=== PATIENT | male | born 1960 | race Caucasian/White ===

== ENCOUNTER 2020-07-28 12:59 | Emergency (ER) | payer MEDICAID ==
[~2020-07-28] VITALS: Ht 190.5 cm; Wt 177.9 kg
[2020-07-28] MEDS ORDERED: CLOPIDOGREL75 MG PO (13:17)
[2020-07-28] MEDS ORDERED: GABAPENTIN800 M1 PO (13:18)
[2020-07-28] MEDS ORDERED: PRINIVIL20 MG PO (13:18)
[2020-07-28] MEDS ORDERED: IMDUR 30 MG TAB30 M1 PO (13:18)
[2020-07-28] MEDS ORDERED: HYDROCHLOROTHIA25 M2 PO (13:19)
[2020-07-28] MEDS ORDERED: BACLOFEN 10MG T10 MG PO (13:19)
[2020-07-28] MEDS ORDERED: ATENOLOL 25 MG25 M1 PO (13:19)
[2020-07-28] MEDS ORDERED: ATORVASTATIN CA20 MG PO (13:19)
[2020-07-28] MEDS ORDERED: ROXICODONE30 MG PO (13:20)
[2020-07-28] MEDS ORDERED: LANTUS SOL100 UNIT/1 SUBQ (13:22)
[2020-07-28] MEDS ORDERED: NOVOLOG FL100 UNIT/M SUBQ (13:23)
[2020-07-28 13:45] LABS: HEMATOCRIT 46.5 % (42.0-52.0); HEMOGLOBIN 15.7 gm/dL (14.0-18.0); MCH 28.6 pg (26.0-34.0); MCHC 33.9 g/dL (28.0-37.0); MCV 84.4 fL (80.0-100.0); RBC 5.5 mil/uL (4.50-6.00); RDW 14.8 % (10.5-14.5); WBC 10.2 thou/uL (4.0-11.0)
[2020-07-28 13:57] LABS: CALCIUM 8.8 mg/dL (8.5-10.1); CREATININE 1.3 mg/dL (0.7-1.3); POTASSIUM 3.9 mmol/L (3.5-5.1)
[2020-07-28 14:00] LABS: APTT 25.9 Seconds (24.5-32.8); PROTIME 10.6 Seconds (9.3-11.4)
[2020-07-28 14:03] LABS: ALBUMIN 3.1 g/dL (3.4-5.0); DIRECT BILIRUBIN 0.1 mg/dL (<0.1-0.2); TOTAL BILIRUBIN 0.7 mg/dL (0.2-1.0); TOTAL PROTEIN 6.9 g/dL (6.4-8.2)
[2020-07-28] MEDS ORDERED: LEVOFLOXACIN750 MG PO (15:34)
[2020-07-28 16:19] VITALS: BP 168/70
== END 2020-07-28 16:21 | disposition home or self-care (01) ==
LOC: ER 12:59
PROVIDERS: Emergency Medicine
DX: J18.9 Pneumonia, unspecified organism (principal); R04.2 Hemoptysis; I10 Essential (primary) hypertension; E11.9 Type 2 diabetes mellitus without complications; J44.9 Chronic obstructive pulmonary disease, unspecified; I25.2 Old myocardial infarction; Z86.73 Personal history of transient ischemic attack (TIA), and cerebral infarction without residual deficits; Z79.4 Long term (current) use of insulin; Z79.01 Long term (current) use of anticoagulants; Z79.899 Other long term (current) drug therapy; Z88.5 Allergy status to narcotic agent; Z88.8 Allergy status to other drugs, medicaments and biological substances; Z20.828 Contact with and (suspected) exposure to other viral communicable diseases

== ENCOUNTER 2020-11-21 13:09 | Emergency (ER) | payer MEDICAID ==
[~2020-11-21] VITALS: Ht 193 cm; Wt 181.4 kg
[~2020-11-21 13:09] MED LIST: ATENOLOL 25 MG25 M1 PO; ATORVASTATIN CA20 MG PO; BACLOFEN 10MG T10 MG PO; CLOPIDOGREL75 MG PO; GABAPENTIN800 M1 PO; HYDROCHLOROTHIA25 M2 PO; IMDUR 30 MG TAB30 M1 PO; LANTUS SOL100 UNIT/1 SUBQ; LEVOFLOXACIN750 MG PO; NOVOLOG FL100 UNIT/M SUBQ; PRINIVIL20 MG PO; ROXICODONE30 MG PO
[2020-11-21] MEDS ORDERED: NORCO 10-325 T1 EACH PO (15:06)
[2020-11-21 15:22] VITALS: BP 182/93
== END 2020-11-21 15:23 | disposition home or self-care (01) ==
LOC: ER 13:09
DX: G89.29 Other chronic pain (principal); M54.5 Low back pain; I10 Essential (primary) hypertension; J44.9 Chronic obstructive pulmonary disease, unspecified; I25.2 Old myocardial infarction; E11.9 Type 2 diabetes mellitus without complications; Z79.2 Long term (current) use of antibiotics; Z79.01 Long term (current) use of anticoagulants; Z79.899 Other long term (current) drug therapy; Z79.4 Long term (current) use of insulin; Z88.8 Allergy status to other drugs, medicaments and biological substances; Z91.013 Allergy to seafood; Z88.5 Allergy status to narcotic agent

== ENCOUNTER 2021-01-13 12:10 | Emergency (ER) | payer MEDICAID ==
[~2021-01-13] VITALS: Ht 193 cm; Wt 188.2 kg
[~2021-01-13 12:10] MED LIST changes: +NORCO 10-325 T1 EACH PO
[2021-01-13 12:17] VITALS: BP 190/84
[2021-01-13] MEDS ORDERED: BACTRIM DS TAB1 EAC1 PO (13:09)
[2021-01-13] MEDS ORDERED: OXYCODONE HCL10 MG PO (13:09)
== END 2021-01-13 15:06 | disposition home or self-care (01) ==
LOC: ER 12:10
DX: S81.832A Puncture wound without foreign body, left lower leg, initial encounter (principal); I89.0 Lymphedema, not elsewhere classified; I10 Essential (primary) hypertension; J44.9 Chronic obstructive pulmonary disease, unspecified; I25.2 Old myocardial infarction; E11.9 Type 2 diabetes mellitus without complications; F17.210 Nicotine dependence, cigarettes, uncomplicated; Z86.73 Personal history of transient ischemic attack (TIA), and cerebral infarction without residual deficits; Z90.89 Acquired absence of other organs; Z79.82 Long term (current) use of aspirin; Z79.4 Long term (current) use of insulin; Z88.8 Allergy status to other drugs, medicaments and biological substances; Z91.013 Allergy to seafood; Z88.5 Allergy status to narcotic agent; Z91.018 Allergy to other foods; W22.8XXA Striking against or struck by other objects, initial encounter; Y93.89 Activity, other specified; Y92.89 Other specified places as the place of occurrence of the external cause; Y99.8 Other external cause status

== ENCOUNTER 2021-02-21 14:35 | Emergency (ER) | payer MEDICAID ==
[~2021-02-21] VITALS: Ht 182.9 cm; Wt 181.4 kg
[~2021-02-21 14:35] MED LIST changes: +BACTRIM DS TAB1 EAC1 PO; +OXYCODONE HCL10 MG PO
[2021-02-21 16:37] LABS: HEMATOCRIT 47.1 % (42.0-52.0); HEMOGLOBIN 15.6 gm/dL (14.0-18.0); MCH 28.9 pg (26.0-34.0); MCHC 33.2 g/dL (28.0-37.0); MCV 87.2 fL (80.0-100.0); RBC 5.4 mil/uL (4.50-6.00); RDW 15.3 % (10.5-14.5); WBC 10.5 thou/uL (4.0-11.0)
[2021-02-21 16:50] LABS: CALCIUM 8.3 mg/dL (8.5-10.1); POTASSIUM 4.2 mmol/L (3.5-5.1)
[2021-02-21 17:11] VITALS: BP 165/89
--- NOTE | 2021-02-22 08:23 | EKG ---
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: : 1960 Requested By: Freddie Mendoza Order Number: [id number] MD: Akil Root Measurements Intervals [place] Rate: 62 P: 68 OR: 190 QRS: -35 QRSD: 115 T: 61 QT: 447 QTc: 454 Interpretive Statements Sinus rhythm Nonspecific intraventricular conduction delay Low voltage, precordial leads No previous ECG available for comparison Electronically Signed On 02-22-2021 7:02:50 CDT by Akil Root [email or web address] <ELECTRONICALLY SIGNED> By: Akil Root MD, [facility] 02/22/21 0702 1621 1621 Akil Root MD, FACC /EPI
== END 2021-02-21 17:12 | disposition home or self-care (01) ==
LOC: ER 14:35
PROVIDERS: Emergency Medicine
DX: M54.5 Low back pain (principal); G89.29 Other chronic pain; I10 Essential (primary) hypertension; J44.9 Chronic obstructive pulmonary disease, unspecified; E11.9 Type 2 diabetes mellitus without complications; F17.210 Nicotine dependence, cigarettes, uncomplicated; Z86.73 Personal history of transient ischemic attack (TIA), and cerebral infarction without residual deficits; Z88.5 Allergy status to narcotic agent; Z91.018 Allergy to other foods

== ENCOUNTER 2021-05-05 17:07 | Inpatient (IN) | payer OTHER ==
[~2021-05-05] VITALS: Ht 193 cm; Wt 187.3 kg
[2021-05-05 17:18] VITALS: BP 158/84
[2021-05-05 17:49] LABS: ABSOLUTE NEUTROPHILS 5.2 thou/uL (1.4-8.2); BASOPHILS 0.7 % (0.0-2.0); EOSINOPHILS 1.8 % (0.0-3.0); HEMATOCRIT 48.7 % (42.0-52.0); HEMOGLOBIN 16.4 gm/dL (14.0-18.0); MCH 29.3 pg (26.0-34.0); MCHC 33.7 g/dL (28.0-37.0); MCV 86.8 fL (80.0-100.0); MONOCYTES 7.1 % (1.0-8.0); PLATELET COUNT 181 thou/uL (150-400); POLYS 60.4 % (36.0-66.0); RBC 5.61 mil/uL (4.50-6.00); RDW 14.3 % (10.5-14.5); WBC 8.6 thou/uL (4.0-11.0)
[2021-05-05 17:56] LABS: CALCIUM 8.6 mg/dL (8.5-10.1); CREATININE 1.1 mg/dL (0.7-1.3); POTASSIUM 4.2 mmol/L (3.5-5.1)
[2021-05-05 18:02] LABS: ALBUMIN 2.9 g/dL (3.4-5.0); TOTAL BILIRUBIN 0.7 mg/dL (0.2-1.0); TOTAL PROTEIN 7.1 g/dL (6.4-8.2)
--- NOTE | 2021-05-05 20:15 | NUR ---
DR MONTEJO CONTACTED AND TALKED WITH PROVIDER
[2021-05-05 20:36] LABS: URINE BILIRUBIN NEGATIVE (Negative); URINE BLOOD NEGATIVE (Negative); URINE CLARITY CLEAR; URINE COLOR YELLOW; URINE GLUCOSE-RANDOM* 1+ (Negative); URINE KETONES NEGATIVE (Negative); URINE LEUKOCYTES-REFLEX NEGATIVE (Negative); URINE NITRITE-REFLEX NEGATIVE (Negative); URINE PROTEIN (DIPSTICK) NEGATIVE (Negative); URINE SPECIFIC GRAVITY >= 1.030 (1.005-1.035); URINE UROBILINOGEN 0.2 E.U./dl (0.2-1.0)
[2021-05-05 20:49] VITALS: BP 145/82
[2021-05-05 20:50] VITALS: BP 158/84
[2021-05-05 22:02] VITALS: BP 183/79
--- NOTE | 2021-05-06 00:38 | NUR ---
ADMISSION ASSESSMENT COMPLETED. PT HERE WITH LLE CELLULITIS. IV ABTS STARTED.PT C/O LEG PAIN AND LOWER CHRONIC BACK PAIN.HE IS ALERT AND ORIENTED X 4. OLIVARES TO D/D WITH GOOD U/O.LLE RE-WRAPPED, NURSE UNABLE TO TAKE PICTURE BECAUSE CAMERA NOT WORKING AND PATIENT DID NOT WANT KALEB BOTHERED LATER. ELEVATED BP, PRN HYDRALAZINE GIVEN. PT USES CPAP@ NOC WITH 2L/NC- WITH OCCASIONAL NON PRODUCTIVE COUGH.LLE ELEVATED ON PILLOW.CALL LIGHT WITHIN REACH. WILL CONTINUE WITH POC TILL EOS.
--- NOTE | 2021-05-06 03:03 | NUR ---
NEW PT ADMITTED TO ROOM 440. REPORT RECIEVED FROM GALDINO CRUZ IN ED. ASSESSMENT COMPLTE. PT ORIENTED TO THIS UNIT AND ROOM. EDUCATION AND HISTORY COLLECTED FROM PT. CONSENTS SIGNED. MEDS GIVEN PER OCT. NOTIFIED CARROL CAREY NP OF NEED FOR PO PAIN MEDICINE AND PRN BP MEDINCINE. ATTEMPTED TO COLLECT WC PICTURES BUT CAMERA WAS AND PT WAS STARTING TO GET SLEEPY AND MILDLY AGITATED. LLE WC COMPLETE. CPAP ON. OLIVARES CARE DONE. ALL NEEDS MET. CALL LIGHT IN REACH.
[2021-05-06 03:54] VITALS: BP 144/79
[2021-05-06 05:32] LABS: HEMOGLOBIN 16.1 gm/dL (14.0-18.0); MCH 29.7 pg (26.0-34.0); MCHC 34.2 g/dL (28.0-37.0); MCV 86.9 fL (80.0-100.0); RBC 5.41 mil/uL (4.50-6.00); RDW 14.2 % (10.5-14.5); WBC 8.8 thou/uL (4.0-11.0)
[2021-05-06 05:43] LABS: CALCIUM 8.4 mg/dL (8.5-10.1); CREATININE 0.9 mg/dL (0.7-1.3); POTASSIUM 3.8 mmol/L (3.5-5.1)
[2021-05-06 08:00] VITALS: BP 147/85
[2021-05-06 15:30] VITALS: BP 146/61
[2021-05-06 20:22] VITALS: BP 172/79
--- NOTE | 2021-05-07 05:06 | NUR ---
ASSUMED PT CARE AT 1930. PT IS ALERT AND ORIENTED X4. PT USES CPAP AT NOC. DRSG CHANGE WAS COMPLETED. PAIN WAS MANAGED BY PRN PAIN MEDS. PT HAS MARSHALL HAS IN PLACE WHICH IS PATENT. PT TOLERATING ABX WELL. PT IS PLEASANT AND COOPERATIVE. MEDS WERE GIVEN PER EMAR ORDERS. FALL PRECAUTIONS IN PLACE. WILL CONTINUE TO MONITOR.
[2021-05-07 05:58] VITALS: BP 150/71
[2021-05-07 07:52] VITALS: BP 162/89
[2021-05-07 08:35] VITALS: BP 162/89
[2021-05-07 09:04] LABS: HEMATOCRIT 48.7 % (42.0-52.0); HEMOGLOBIN 15.9 gm/dL (14.0-18.0); MCH 29.1 pg (26.0-34.0); MCHC 32.6 g/dL (28.0-37.0); MCV 89.1 fL (80.0-100.0); RBC 5.46 mil/uL (4.50-6.00); RDW 14.6 % (10.5-14.5); WBC 9.2 thou/uL (4.0-11.0)
[2021-05-07 09:07] LABS: CALCIUM 8.3 mg/dL (8.5-10.1); MAGNESIUM 2.2 mg/dL (1.8-2.4); POTASSIUM 4.3 mmol/L (3.5-5.1)
--- NOTE | 2021-05-07 11:45 | NUR ---
RECEIVED P.T. ORDERS AND CHART REVIEWED. O.T. HAD JUST EVAL'D Pt AND IS D/C'ING HIM. Pt EVEN WAS ABLE TO TAKE A SHOWER ON HIS OWN. SPOKE TO Pt AND HE PLEASANTLY REFUSED P.T. HE STATES THAT HE GETS AROUND JUST FINE AND ONLY HAS 1 LIZBET WITH HAVING NO ISSUES IN DOING. SO, WILL P.T. D/C AT THIS TIME.
[2021-05-07 15:12] VITALS: BP 122/65
--- NOTE | 2021-05-07 15:31 | NUR ---
ASSUMED CARE OF PT THIS MORNING. PT A&OX4. PT UP TO BATHROOM WITH STEADY GAIT NOTED. PT REFUSES TO USE A WALKER OR A CANE. PT MARSHALL IS PATENT. MEDS GIVEN PER ORDERS. IV PAIN MEDS GIVEN WITH STATED NOTED RELIEF. DRESSING CHANGE DONE. WILL CONTINUE TO MONITOR.
[2021-05-07 19:20] VITALS: BP 132/69
[2021-05-08 03:13] LABS: HEMATOCRIT 45.9 % (42.0-52.0); HEMOGLOBIN 15.5 gm/dL (14.0-18.0); MCH 29.6 pg (26.0-34.0); MCHC 33.8 g/dL (28.0-37.0); MCV 87.6 fL (80.0-100.0); RBC 5.24 mil/uL (4.50-6.00); RDW 14.2 % (10.5-14.5); WBC 9.4 thou/uL (4.0-11.0)
--- NOTE | 2021-05-08 03:32 | NUR ---
PATIENT RESTING IN HIS ROOM AAOX4. PATIENT HAS WEEPING EDEMA 2-3+ IN BLE. PATIENT STATES THAT HIS PAIN IS 10/10. PT STATES THAT HE NEEDS HELP TO HAVE A BM. AMBULATES WITH MINIMAL ASSISTANCE TO RESTROOM. PT COOPERATES WITH MEDICATION AND TREATMENT. THIS AM 0230 PATIENT STATES THAT HE WANTS TO SEE WHERE HIS BLOOD SUGAR IS SO HE CAN EAT SOME NUTTY BARS AND HAVE SOME COFFEE. EDUCATED PATIENT THAT HE IS ORDERED A DIABETIC DIET AND THAT HE WOULD NOT HAVE INSULIN COVERAGE AT THIS TIME. PATIENT STATES THAT HE IS "ON A HOLLIE DIET. STATES THAT HE HAS THIS ROUTINE THAT HE DOES AT HOME. DRINK A CUP OF COFFEE, EAT A NUTTY BAR, THEN DRINK ANOTHER CUP OF COFFEE. I HAVE MADE IT 61 YEARS AND STILL LOOK GOOD." PATIENT WAS ADMINISTERED MEDICATION FO RPAIN AND WAS GIVEN SMALL CUP OF COFFEE WITH NO SUGAR.
[2021-05-08 03:50] LABS: CALCIUM 8.3 mg/dL (8.5-10.1); CREATININE 1.2 mg/dL (0.7-1.3); MAGNESIUM 2.1 mg/dL (1.8-2.4); POTASSIUM 3.9 mmol/L (3.5-5.1)
[2021-05-08 03:53] VITALS: BP 140/70
--- NOTE | 2021-05-08 09:02 | HC ---
[facility] [place] [address] CONSULTATION Name: HOLLIE CONTRERAS Room #: 440-P [facility] IN M.R.#: [id number] Admission: 05/05/21 Attend Phys: Velasquez Gayle MD Discharge: Date of : 58 Report #: [id number] THIS REPORT FOR: cc: Juan Antonio Iyer MD, David MD [place],Sergio Gonzalez MD ~ DATE OF SERVICE: 05/06/2021 WOUND CARE CONSULTATION NOTE REASON FOR CONSULTATION: Morbid obesity with diabetes mellitus and peripheral neuropathy, with bilateral lower extremity lymphedema, with venous stasis with ulceration and inflammation of left leg, with cellulitis of left leg. HISTORY OF PRESENT ILLNESS: The patient is a 60-year-old gentleman admitted to the Emergency Department at [facility] with morbid obesity, diabetes mellitus type 2 with diabetic neuropathy, lymphedema and venous stasis with inflammation and ulceration of the left leg, with cellulitis of the left leg with extreme pain. He is currently on IV vancomycin. Wound Care was consulted. ALLERGIES: MORPHINE AND CHANTIX. MEDICATIONS: See chart. PAST MEDICAL HISTORY: Morbid obesity, hypertension, COPD, history of cerebrovascular accident, diabetes mellitus type 2, immobility, chronic lymphedema, chronic venous stasis, tobaccoism. PHYSICAL EXAMINATION: GENERAL: Shows a well-appearing, alert, bearded 60-year-old gentleman who is alert, pleasant, and conversant. HEENT: Mucous membranes moist. NECK: Supple. LUNGS: Respirations unlabored. ABDOMEN: Soft and obese. EXTREMITIES: Show bilateral lymphedema of the lower extremities. There is some chronic redness and inflammation of the right leg without tenderness. Examination of the left leg shows more redness of the left leg with cellulitis and extreme tenderness. There is evidence of chronic venous stasis with inflammation and ulceration. There are small ulcerations, scattered, less than 1 cm in the posterior aspect of the left calf distally, which are very tender to touch. IMPRESSION: 1. Morbid obesity. [facility] [address] [facility] [place] [address] CONSULTATION Name: HOLLIE CONTRERAS Room #: 440-P ADM IN .R.#: [id number] Admission: 05/05/21 Attend Phys: Velasquez Gayle MD Discharge: Date of : 58 Report #: [id number] 2. Diabetes mellitus type 2 with skin ulcers. 3. Cellulitis of the left leg in setting of lymphedema and chronic venous stasis with inflammation and ulceration. 4. Status post cerebrovascular accident. 5. Immobility. 6. Tobaccoism. 7. History of coronary artery disease. WOUND CARE PLAN: IV vancomycin. Elevation of the left leg. Xeroform dressing to left leg with Kerlix wrap daily. Primary therapy will be IV antibiotics. Wound Care team will follow. <ELECTRONICALLY SIGNED> By: Sergio Rico MD 05/08/21 0902 0505 0533 Sergio Rico MD /melissa
[2021-05-08 14:32] VITALS: BP 119/82
--- NOTE | 2021-05-08 14:37 | NUR ---
Case opened to follow for dc planing. Instrumental Teacher visited with the pt at bedside. He is a&ox4 and indicates he lives at home with his and adult son/adult dtr and 2 grandchildren. He and his recently moved from [place], [place] to [place] and have been trying to apply for [place] medicaid. He is disabled and was on [place] medicaid for several years but it was canceled due to his change in residence. He was not able to get any of his scripts fill in the past 30 days or see his pcp. He has been followed by Dr. Juan Antonio Iyer for several years. His and adult son are also disabled and they were on medicaid as well. He is up ad fuentes in the room but notes his lt foot is extremely swollen. He reports coming to the hospital as it was getting dark in color and more painful. He is a diabetic and has a small amount of insulin but no needs. [facility] along with [facility] referral and a one time script assistance. [facility] to see him this afternoon and they are aware they will need to call pt's during visit as she is the one who manages their ins/paperwork. Cm role introduced. Possible dc home tomorrow.
--- NOTE | 2021-05-08 16:24 | NUR ---
ASSUMED CARE AT SHIFT CHANGE. PT A/O X 4, PLESANT AND CALM THROUGHOUT THE DAY. C/O PAIN TO LOW BACK AND LLE AT 10/10 ALL DAY. MINIMAL RELIEF WITH PRN PAIN MEDS. UP TO CHAIR ONCE TODAY FOR LUNCH. WOUND DRESSING CHANGED. NEW ORDERS IN CHART PER WOUND CARE. PT LEGS ELEVATED WITH PILLOWS TODAY FOR EDEMA. DIURESING WELL. PLAN TO DC HOME WITH HH TOMORROW. WILL CONT TO MONITOR AND FOLLOW POC.
--- NOTE | 2021-05-09 00:55 | NUR ---
DRESSING TO LLE C/D/I. PT C/O PAIN TO LOWER BACK AND LEGS, ASKING FOR FENTANYL IVP WELL NORCO, PAIN MEDS EDUCATION PROVIDED, AND THE TWO MEDS WILL BE ALTERNATED NEEDED-PT AGREEABLE. PT REFUSED SHORT ACTING INSULIN SAYING HE KNOWS HIS BODY AND THAT HE WILL BOTTOM OUT-EDUCATION PROVIDED IN LIGHT OF HIS HIGH BLOOD SUGAR HISTORY-NO SUCCESS-PT ALSO HAS SNACKS BY THE BEDSIDE WHICH HE EATS AT NOC WHEN SUGARS GO LOW HE SAYS.NO SIGNS OF DISTRESS NOTED.CALL LIGHT WITHIN REACH.
[2021-05-09 02:00] VITALS: BP 138/62
[2021-05-09 03:25] LABS: HEMATOCRIT 45.1 % (42.0-52.0); HEMOGLOBIN 15.3 gm/dL (14.0-18.0); MCH 29.6 pg (26.0-34.0); MCHC 33.8 g/dL (28.0-37.0); MCV 87.4 fL (80.0-100.0); RBC 5.17 mil/uL (4.50-6.00); RDW 14.2 % (10.5-14.5); WBC 7.8 thou/uL (4.0-11.0)
[2021-05-09 03:34] LABS: CALCIUM 8.3 mg/dL (8.5-10.1); MAGNESIUM 2.1 mg/dL (1.8-2.4); POTASSIUM 3.7 mmol/L (3.5-5.1)
[2021-05-09 07:41] VITALS: BP 130/70
[2021-05-09 12:05] VITALS: BP 123/69
--- NOTE | 2021-05-09 12:12 | NUR ---
A/O X 4. Room air. One assist with transfers and ADLs. Right forearm IV saline locked. 3 + bilateral leg edema. student development specialist completed wound care on left lower leg wound- silver, xerofoam, kerlix, jose wrap. Wound culture of left lower leg postve for MRSA. Patient placed on contact isolation. Nurse spoke with Dr. Samuels about patient not wanting a carb control diet, he said that regular diet is fine. [place] @ [id number]. Tolerating IV ABTs well ZOYSN AND Vanco. Lidocaine patch placed on back. artist manager Betty spoke with patient about [facility].
[2021-05-09] MEDS ORDERED: LEVOFLOXACIN750 MG PO (12:41)
[2021-05-09] MEDS ORDERED: DOXYCYCLINE 10100 M2 PO (12:41)
[2021-05-09] MEDS ORDERED: CLOPIDOGREL75 MG PO (12:42)
[2021-05-09] MEDS ORDERED: IMDUR 30 MG TAB30 M1 PO (12:42)
[2021-05-09] MEDS ORDERED: LASIX 40 MG TAB40 MG PO (12:42)
[2021-05-09] MEDS ORDERED: ATORVASTATIN CA20 MG PO (12:42)
[2021-05-09] MEDS ORDERED: GABAPENTIN800 M1 PO (12:43)
[2021-05-09] MEDS ORDERED: LANTUS SOL100 UNIT/1 SUBQ (12:43)
[2021-05-09] MEDS ORDERED: PRINIVIL20 MG PO (12:43)
[2021-05-09] MEDS ORDERED: ATENOLOL 25 MG25 M1 PO (12:43)
[2021-05-09] MEDS ORDERED: NOVOLOG FL100 UNIT/M SUBQ (12:43)
[2021-05-09] MEDS ORDERED: SSD CREAM 1% 5050 GM TOP (12:44)
--- NOTE | 2021-05-09 16:44 | NUR ---
Pt left before [facility] CM vouched $1219.00 for 30 days supply to give him time to connect with a [facility] clinic ([facility]) and to get his [place] medicaid in place. [facility] is following up with him and his . Power Press Operator spoke with both of them via phone and they will send their dtr back up this evening or early tomorrow am to get the medication. Encouragement given for med compliance and f/u care.
== END 2021-05-09 14:02 | disposition home or self-care (01) | DRG 603 ==
LOC: ER 17:07 → EROBS 18:31 → 4S 21:10
PROVIDERS: Nurse Practitioner; ADMIT Internal Medicine; ATTEND Internal Medicine
PROC: 5A09357 Assistance with Respiratory Ventilation, Less than 24 Consecutive Hours, Continuous Positive Airway Pressure (ICD-10-PCS; principal; 2021-05-05)
PROC: 5A09457 Assistance with Respiratory Ventilation, 24-96 Consecutive Hours, Continuous Positive Airway Pressure (ICD-10-PCS; 2021-05-06)
DX: L03.116 Cellulitis of left lower limb (principal); Z68.43 Body mass index [BMI] 50.0-59.9, adult; L97.229 Non-pressure chronic ulcer of left calf with unspecified severity; Z20.822 Contact with and (suspected) exposure to COVID-19; I10 Essential (primary) hypertension; J44.9 Chronic obstructive pulmonary disease, unspecified; G89.29 Other chronic pain; G47.33 Obstructive sleep apnea (adult) (pediatric); M54.9 Dorsalgia, unspecified; F17.210 Nicotine dependence, cigarettes, uncomplicated; E66.01 Morbid (severe) obesity due to excess calories; E11.40 Type 2 diabetes mellitus with diabetic neuropathy, unspecified; I87.8 Other specified disorders of veins; I89.0 Lymphedema, not elsewhere classified; E11.622 Type 2 diabetes mellitus with other skin ulcer; I25.10 Atherosclerotic heart disease of native coronary artery without angina pectoris; I25.2 Old myocardial infarction; Z86.73 Personal history of transient ischemic attack (TIA), and cerebral infarction without residual deficits; Z88.8 Allergy status to other drugs, medicaments and biological substances; Z91.018 Allergy to other foods; Z91.013 Allergy to seafood; Z79.4 Long term (current) use of insulin
CPT/HCPCS: 10100; 10102

== ENCOUNTER 2021-05-25 10:36 | Inpatient (IN) | payer OTHER ==
[~2021-05-25] VITALS: Ht 193 cm; Wt 186.9 kg
[~2021-05-25 10:36] MED LIST changes: +DOXYCYCLINE 10100 M2 PO; +LASIX 40 MG TAB40 MG PO; +SSD CREAM 1% 5050 GM TOP
[2021-05-25 10:54] VITALS: BP 122/73
[2021-05-25 11:38] LABS: HEMATOCRIT 50.1 % (42.0-52.0); MCH 29.2 pg (26.0-34.0); MCHC 33.9 g/dL (28.0-37.0); MCV 85.9 fL (80.0-100.0); RBC 5.83 mil/uL (4.50-6.00); RDW 14.7 % (10.5-14.5); WBC 10.8 thou/uL (4.0-11.0)
[2021-05-25 11:42] LABS: CALCIUM 8.7 mg/dL (8.5-10.1); POTASSIUM 4.5 mmol/L (3.5-5.1)
[2021-05-25 11:48] LABS: ALBUMIN 3.3 g/dL (3.4-5.0); TOTAL BILIRUBIN 0.6 mg/dL (0.2-1.0); TOTAL PROTEIN 7.7 g/dL (6.4-8.2)
[2021-05-25 16:59] VITALS: BP 90/57
[2021-05-25 17:02] VITALS: BP 115/64
[2021-05-25 18:45] VITALS: BP 141/70
--- NOTE | 2021-05-26 04:45 | NUR ---
ASSUMED CARE OF PT AT SHIFT CHANGE. PT IS AOX4 AND LETS NEEDS BE KNOWN. FALL PRECAUTION IN PLACE. PT WAS ORIENTED TO THE UNIT AND HIS ROOM. FALL PRECAUTION IN PLACE. REPORTED SOME BACK PAIN AND BLE PAIN; PRN PAIN MEDS PROVIDED WITH LITTLE SUCCESS. PT USED CPAP WHILE SLEEPING. PT WAS ABLE TO ANSWER ALL ADMISSION RELATED QUESTIONS. ASSESSMENT CHARTED. PT SLEPT PART OF THE SHIFT. VSS AND NO S/S OF ACUTE DISTRESS. WILL CONTINE TO MONITOR FOR CHANGES.
--- NOTE | 2021-05-26 05:16 | HC ---
[facility] [place] [address] [place] [address] CONSULTATION Name: HOLLIE CONTRERAS Room #: 459-P ADM IN M.R.#: [id number] Admission: 05/25/21 Attend Phys: Lavon Samuels MD Discharge: Date of : 58 Report #: [id number] THIS REPORT FOR: cc: FAM - No family physician/PCP FAM - No family physician/PCP Ramone Myers MD ~ DATE OF SERVICE: 05/25/2021 INFECTIOUS DISEASE CONSULTATION ATTENDING PHYSICIAN: Dr. Samuels. REASON FOR EVALUATION: Left lower extremity inflammatory eruption, likely multifactorial including skin and soft tissue infection with cellulitis, this is a recurrent situation. HISTORY OF PRESENT ILLNESS: The patient examined. This is a 60-year-old gentleman who has fairly extensive medical history, has diabetes mellitus, has been complicated by known vasculopathy, acute myocardial infarction, underlying COPD, venous stasis insufficiency with dermatitis and recurrent ulcers, most recently the posterior aspect of the left leg. It was notable, he was hospitalized earlier this month with same. Cultures were collected at that point had polymicrobial growth including Pseudomonas aeruginosa, Proteus vulgaris and MRSA. He was discharged on antibiotics, seems to have improving of course until he was last couple days, he discontinued the antibiotics due to completion of the combination of Levaquin and doxycycline roughly 6 days ago. He does note significant amount of pain. It is not clear whether he has had significant fevers or chills. Appetite has been satisfactory. Has underlying COPD. He is a chronic smoker. No GI-related complaints. ALLERGIES: LISTED TO SEAFOOD ___, MORPHINE, CHANTIX. CURRENT MEDICATIONS: Cyanocobalamin, clopidogrel, furosemide, methocarbamol, insulin, atorvastatin, gabapentin, ceftriaxone, levofloxacin, vancomycin. PAST MEDICAL HISTORY: As described above, hypertension, COPD, diabetes complicated by vasculopathy, has previous acute myocardial infarctions, strokes, AAA, chronic back pain, obstructive sleep apnea, chronic venous stasis insufficiency with dermatitis and chronic ulcers. SOCIAL HISTORY: Smokes 1 to 1-1/2 packs of cigarettes. He states since age 8. Past use of ethanol. Does use illicit drugs, specifically marijuana. FAMILY HISTORY: Noncontributory. REVIEW OF SYSTEMS: Otherwise, unremarkable. [address] [address] CONSULTATION Name: HOLLIE CONTRERAS Room #: 459-P [facility] IN ..#: [id number] Admission: 05/25/21 Attend Phys: Lavon Samuels MD Discharge: Date of : 58 Report #: [id number] PHYSICAL EXAMINATION: GENERAL: He is obese, appears chronically ill, generally lucid. He is in moderate distress, intermittent coughing. VITAL SIGNS: Temperature 98.3, pulse 59, respirations 18, blood pressure 90/57. SKIN: Warm, dry, no rashes. HEENT: Normocephalic. Extraocular muscles intact. NECK: Supple. LUNGS: Scattered coarse breath sounds, has some wheezes. HEART: Distant, may have a soft systolic murmur. I do not appreciate any significant ectopy. ABDOMEN: Morbid obesity, firm, nontender. EXTREMITIES: Bilateral lower extremities have changes consistent with chronic venous stasis insufficiency and dermopathy, has an eschar over the posterior aspect of the left leg, is quite tender to palpation at this point, there is no particular drainage. GENITOURINARY AND RECTAL: Deferred. LABORATORY DATA: Coronavirus testing was negative. Lactic acid 1.5. CBC: White count of 10.8, H and H 17.0 and 50.1, platelets of 207. Sodium 135, potassium 4.5, chloride 104, bicarbonate 24, anion gap of 7, BUN and creatinine 12 and 1.0, glucose of 163. Albumin of 3.3, total protein of 7.7, estimated GFR 76. Chest x-ray showed no acute process. ASSESSMENT AND PLAN: Bilateral lower extremity inflammatory eruptions, left greater than right, associated ulcer, posterior aspect, suspected component of skin and soft tissue infection, although I think it is multifactorial including venous stasis insufficiency, previous venous Doppler done 3 weeks ago showed no evidence of DVT. We will check arterial Dopplers to exclude that may benefit from aggressive compression and if there is any significant arterial occlusive disease and may be addressed as well. At this point, he is quite tenuous. We will continue to monitor expectantly. Add incentive spirometry. He should have a good coverage based on previous cultures and the expectation is probably gram-positive setting. <ELECTRONICALLY SIGNED> By: Ramone Myers MD 05/26/21 0516 1500 0058 Ramone Myers MD /nt
[2021-05-26 05:45] VITALS: BP 136/57
[2021-05-26 06:32] LABS: BASOPHILS 0.8 % (0.0-2.0); HEMATOCRIT 46.8 % (42.0-52.0); HEMOGLOBIN 15.5 gm/dL (14.0-18.0); LYMPHOCYTES 24.9 % (24.0-44.0); MCHC 33.2 g/dL (28.0-37.0); MCV 87.5 fL (80.0-100.0); MONOCYTES 7.5 % (1.0-8.0); PLATELET COUNT 160 thou/uL (150-400); POLYS 63.8 % (36.0-66.0); RBC 5.34 mil/uL (4.50-6.00); RDW 14.7 % (10.5-14.5); WBC 7.9 thou/uL (4.0-11.0)
[2021-05-26 06:48] LABS: CALCIUM 8.6 mg/dL (8.5-10.1); MAGNESIUM 2.3 mg/dL (1.8-2.4)
[2021-05-26 07:45] VITALS: BP 165/73
--- NOTE | 2021-05-26 14:17 | NUR ---
PT DOES NOT WANT OR FEEL HE NEEDS OT. SEE OT VARIANCE
--- NOTE | 2021-05-26 14:53 | NUR ---
PT DECLINING P.T. EVALUATION AT THIS TIME. RN CONFIRMS PT'S REPORT THAT PT IS AMBULATING AD JENNY IN ROOM WHEN DISCONNECTED FROM I.V. PT ABLE TO DEMONSTRATE BILAT LE ROM AND TX AT SBA LEVEL. DECLINED NEED FOR A.D. DUE TO INCREASED LE PAIN OR EDEMA. REQUEST NEW P.T. CONSULT IF PT DEMONSTRATES A DECLINE IN FUNCTIONAL MOBILITY LEVEL. PT PRIMARILY AMB HOUSEHOLD DISTANCES AT BASELINE AND CONTINUES TO ACTIVELY SMOKE INSIDE HIS HOME.
[2021-05-26 16:19] VITALS: BP 128/87
--- NOTE | 2021-05-26 17:25 | NUR ---
TODAY THIS PT HAS BEEN NSR ON THE HEART MONITOR WITH SOME STATED PAIN IN WHICH HE RECIEVED MEDICATIONS FOR. HE HAS HAD A SHOWER TODAY AND CULTURE WAS SENT ON HIS LEG WOUND HE HAS OTHERWISE BEEN IN HIS ROOM AWAITING FOR THE NEXT PLAN.
[2021-05-26 20:20] VITALS: BP 147/63
[2021-05-27 05:44] LABS: HEMATOCRIT 45.2 % (42.0-52.0); MCHC 33.1 g/dL (28.0-37.0); MCV 87.7 fL (80.0-100.0); RBC 5.16 mil/uL (4.50-6.00); RDW 14.6 % (10.5-14.5); WBC 7.3 thou/uL (4.0-11.0)
--- NOTE | 2021-05-27 06:34 | NUR ---
ASSUMED CARE AT 1900, PT COMPLIANT WITH CPAP AT NIGHT, VOICED LOWER BACK PAIN MEDICATION ADMINISTERED PER REQUEST, SLEPT FOR 6 HOURS, WILL CONTINUE TO MONITOR.
[2021-05-27 06:42] LABS: CALCIUM 8.4 mg/dL (8.5-10.1); CREATININE 0.9 mg/dL (0.7-1.3); POTASSIUM 4.2 mmol/L (3.5-5.1)
[2021-05-27 07:39] VITALS: BP 139/69
--- NOTE | 2021-05-27 09:32 | HC ---
[facility] [place] [address] CONSULTATION Name: HOLLIE CONTRERAS Room #: 459-P ADM IN M.R.#: [id number] Admission: 05/25/21 Attend Phys: Lavon Samuels MD Discharge: Date of : 58 Report #: [id number] THIS REPORT FOR: cc: FAM - No family physician/PCP FAM - No family physician/PCP Sergio Rico MD ~ DATE OF SERVICE: 05/26/2021 WOUND CARE CONSULTATION REASON FOR CONSULTATION: Lymphedema, left lower extremity with cellulitis and stasis ulceration. HISTORY OF PRESENT ILLNESS: The patient is a 60-year-old gentleman known to this hospital from previous admissions for chronic problems with lymphedema of the lower extremities with cellulitis. The patient also has a history of diabetes. He had been previously treated in this institution for lymphedema with cellulitis. His left leg became worse with increased swelling, pain, tenderness and drainage of an ulcer on the posterior aspect of the leg. He was admitted to the Emergency Room, was in the Emergency Room most of the day yesterday. He has been begun on IV antibiotics, Levaquin and ceftriaxone after a dose of vancomycin. Wound Care was consulted due to cellulitis of left leg with a wound. PAST MEDICAL HISTORY: Diabetes mellitus type 2, chronic lymphedema, history of MRSA in the past. ALLERGIES: MORPHINE, ____. LABORATORY DATA: White blood count is 10.8. PHYSICAL EXAMINATION: GENERAL: Shows a mildly obese gentleman, over 59. He is alert, pleasant and conversant. EXTREMITIES: Focused physical examination shows lymphedema of the lower extremities. In particular, his left lower leg shows marked swelling, chronic lymphedema, redness and discoloration of the posterior calf. There are two small superficial ulcerations with dried crusted drainage. Wound cultures ordered. IMPRESSION: 1. Obesity. 2. Diabetes mellitus type 2 with skin ulcer. 3. Cellulitis, left lower extremity. 4. Venous stasis with ulceration and inflammation, left lower extremity. [address] [address] CONSULTATION Name: HOLLIE CONTRERAS [place] Room #: 459-P [facility] IN ..#: [id number] Admission: 05/25/21 Attend Phys: Lavon Samuels MD Discharge: Date of : 58 Report #: [id number] PLAN: Wound culture of open wound of left lower extremity. Continue IV antibiotics, topical gentamicin 0.1%, covered with Xeroform and a Kerlix wrap. Wound Care team will follow. <ELECTRONICALLY SIGNED> By: Sergio Rico MD 05/27/2132 0737 0748 Sergio Rico MD /nt
--- NOTE | 2021-05-27 16:46 | NUR ---
today this pt has had some stated pain in which it was taken care of with medication. he has had stable vs as well as blood sugars. he has otherwise been tolerating his medications well and has been calling out when he needs help
[2021-05-27 17:12] VITALS: BP 137/75
[2021-05-27 18:00] VITALS: BP 148/82
[2021-05-27 19:58] VITALS: BP 160/74
[2021-05-27 21:01] VITALS: BP 160/74
--- NOTE | 2021-05-28 06:05 | NUR ---
UPON SHIFT ASSESSMENT, PT AOX4. PT REPORTS 10/10 PAIN IN LEFT ANKLE, LOWER BACK, AND PENIS. PT RECEIVING PRN PO OXYCODONE Q4HR WITH PRN PO APAP Q4HR AVAILABLE. PT TOLERATING PO INATKE OF FLUIDS AND REGULAR DIET WITHOUT ISSUE. PT WITHOUT NAUSEA OR EMESIS. LOIVARES CATHETER IN PLACE, PATENT, SECURMENT DEVICE IN PLACE, SHANE URINE NOTED. PT RESTING IN BED THROUGHOUT SHIFT, FREQUENT REPOSITIONING ENCOURAGED, PT NOTED TO SHIFT SLIGHTLY ON HIS OWN, REFUSING REPOSITIONING ASSISTANCE. PT REPORTS NUMBNESS AND TINGLING IN LEFT ANKLE, PENIS, AND LOWER BACK. CAPILLARY REFILL LESS THAN 3SEC, PERIPHERAL PULSES FAINT IN BUE, UNABLE TO PALPATE PULSES IN BLE. REDNESS AND PITTING EDEMA NOTED TO LLE, NONPITTING EDEMA NOTED TO RLE. PT ENCOURAGED TO NOTIFY STAFF FOR ALL NEEDS, CALL LIGHT WITHIN REACH, BED ALARM ON, BED LOCKED IN LOWEST POSITION, FREQUENT MONITORING WILL CONTINUE. PT NOTIFIED STAFF WITH UNRELIEVED PAIN IN LLE. ONCALL PALLIATIVE NURSE NOTIFIED, EMAR UPDATED. PT GIVEN ONETIME IV TORADOL. FREQUENT MONITORING WILL CONTINUE.
[2021-05-28 06:29] LABS: HEMATOCRIT 47.6 % (42.0-52.0); HEMOGLOBIN 15.7 gm/dL (14.0-18.0); MCHC 32.9 g/dL (28.0-37.0); RBC 5.41 mil/uL (4.50-6.00); RDW 14.8 % (10.5-14.5); WBC 7.1 thou/uL (4.0-11.0)
[2021-05-28 06:46] LABS: CALCIUM 8.8 mg/dL (8.5-10.1); POTASSIUM 4.4 mmol/L (3.5-5.1)
[2021-05-28 08:00] VITALS: BP 139/67
[2021-05-28 15:38] VITALS: BP 160/53
[2021-05-28 19:30] VITALS: BP 154/96
--- NOTE | 2021-05-29 05:15 | NUR ---
Pt A/OX4,non compliant in clling for assist before getting out of bed,fall safety reinforced and pt coperative thereafter. VSS. C/O back pain,medicated per EMAR and able to get some rest on and off at NOC.Wore BPAP for about 3hrs then requested it be turned off. Dsg on Left leg C/D/I. Redness/swelling noted ,pt elevates legs on pillows when prompted to. SR On telemetry.Fall precautions in place,will continue to monitor pt.
[2021-05-29 08:00] VITALS: BP 145/93
[2021-05-29 08:00] LABS: HEMATOCRIT 47.4 % (42.0-52.0); HEMOGLOBIN 15.5 gm/dL (14.0-18.0); MCH 28.9 pg (26.0-34.0); MCHC 32.6 g/dL (28.0-37.0); MCV 88.7 fL (80.0-100.0); RBC 5.34 mil/uL (4.50-6.00); RDW 14.6 % (10.5-14.5); WBC 7.7 thou/uL (4.0-11.0)
[2021-05-29 08:16] LABS: CALCIUM 8.5 mg/dL (8.5-10.1)
--- NOTE | 2021-05-29 16:14 | NUR ---
PT ADMITTED RELATED TO CELLULITIS, LYMPHADEMA, AND HYPERGLYCEMIA. CM REVIEWED CHART AND SPOKE WITH CARE TEAM. CM MET WITH PT AT BEDSIDE YESTERDAY. PT APPEARED TO BE A&O X4. CM ROLE INTRODUCED. PT INDICATED HE HAD A [place] [facility] APPLICATION THAT SIDNEY WITH [facility] HAD GIVEN HE AND HIS ON HIS LAST ADMISSION. CM NOTIFIED [facility] VIA EMAIL YESTERDAY. PT ON IV CEFTRIAXONE AND VANC. PT INDICATED HE IS PATIENT PAY. PT NEEDED MEDS VOUCHERED UPON LAST DISCHAREGE AND LEFT BEFORE THEY WERE FILLED HIS DTR HAD TO COME PICK THEM UP POST DC. PT INDICATED HE RESIDES IN A HOUSE WITH HIS , SON, DTR, AND 2 GRANDKIDS. HE INDICATED 2 STEPS TO ENTER AND NO STEPS INSIDE. 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 PT INDICATED HE HAS A FWW, CANE, AND WC FOR USE AT HOME. PT INDICATED NO PCP AND HADN'T ESTABLISHED HIMSELF WITH A PCP UPON LAST DC. PT INDICATED HE WILL NEED MEDS VOUCHERED UPON DC THIS TIME. PT WENT FOR ARTEROGRAM WITH BL RUNNOFFS THIS AFTERNOON. PT IS TO BE TRANSFERED TO RM 218 POST PROCEDURE. CM TO FOLLOW INDICATED WITH DC PLANNING.
[2021-05-29 16:40] VITALS: BP 151/69
--- NOTE | 2021-05-29 16:57 | NUR ---
PT ADMIT TO 2N FROM IR, FROM 4W. PT AFEBRILE, ADEQUATE UOP, NO BM, APPROPRIATE APPETITE. PT HAS BEEN THOUROUGHLY UPDATED AND EDUCATED ON PT CONDITION AND POC. PT AGREES TO ALL BEDREST/MOVEMENT RESTRICTIONS. TO BE OFF BEDREST AT APPROX 1920 TONIGHT. PT RATING 20 OUT OF 10 PAIN. DISTAL PULES ARE VERY FAINT.
[2021-05-29 19:27] VITALS: BP 140/55
[2021-05-30] VITALS (7 sets, daily range): BP systolic 132–157; BP diastolic 43–74
--- NOTE | 2021-05-30 05:46 | NUR ---
AT APPROXIMATELY 0530 NURSE ENTERED PATIENTS ROOM AFTER CALL FOR PAIN MEDICATION. AT THAT TIME PATIENT STATED TO NURSE THAT "HE THINKS SOMETHING IS WRONG" WITH THE MEDICATION HE HAS BEEN GIVEN ON "THIS FLOOR" THE OXYCODONE HE WAS GIVEN UP ON THE FOURTH FLOOR "WAS ORANGE" AND THIS MEDICATION WAS WHITE. NURSE PROMPTLY SHOWED PATIENT UNOPENED WHITE OXYCODONE TABLETS AND ALLOWED HIM TO READ THE BACK OF THE PACKAGE. NURSE THEN ASKED FELLOW NURSE DIAMOND TO COME LISTEN AND BE A WITNESS TO CONVERSATION. RT MARION WAS IN HALLWAY AND HEARD ENTIRE INTERACTION. PATIENT BECAME ENRAGED WHEN NURSE ASKED FOR WITNESSES AND PRECEDED TO TELL NURSE THAT HE WAS DONE SPEAKING TO HIM AND WANTED HIM TO LEAVE HIS ROOM. THIS NURSE THEN CLEARED IV PUMP AND LEFT. NURSE HAS ASKED FELLOW FLOOR NURSE TO GIVE PATIENT REST OF 0700 MEDICATIONS AND WILL NOT RETURN TO ROOM. THIS INTERACTION WILL BE RELAYED TO NURSE APPLICATION PENETRATION TESTER LATER THIS MORNING.
[2021-05-30 08:08] LABS: HEMATOCRIT 50.3 % (42.0-52.0); HEMOGLOBIN 16.7 gm/dL (14.0-18.0); MCH 29.2 pg (26.0-34.0); MCHC 33.2 g/dL (28.0-37.0); MCV 87.8 fL (80.0-100.0); RBC 5.73 mil/uL (4.50-6.00); RDW 14.4 % (10.5-14.5); WBC 10.1 thou/uL (4.0-11.0)
[2021-05-30 08:33] LABS: CALCIUM 8.9 mg/dL (8.5-10.1); CREATININE 1.1 mg/dL (0.7-1.3); POTASSIUM 4.1 mmol/L (3.5-5.1)
--- NOTE | 2021-05-30 18:45 | NUR ---
PATIENT COMPLAINING OF PAIN THROUGH OUT THE SHIFT, RATES IS 2,000/10. DR. MARROQUIN AWARE OF PAIN VOICED BY NAOMI. GIVEN PRN MEDICATION PER OCT. SHOWERED THIS AFTERNOON. SEEN BY WOUND DR. DRESSING CHANGES DONE BY WOUND CARE NURSE. SWITCHED TO ORAL ABX. POTENTIALLY DISCHARGING TOMORROW.
[2021-05-31 05:04] VITALS: BP 117/71
--- NOTE | 2021-05-31 05:24 | NUR ---
ASSUMED PATIENT CARE AT 1900H.PATIENT IS ALERT AND ORIENTED X4.ON ROOM AIR BREATHING SPONTANEOUSLY.WITH OLIVARES CATHETER INTACT.HAS BEEN COMPLAINTS OF PAIN, PRN OXYCODONE GIVEN.USED BIPAP AT NIGHT DURING SLEEPING.REFUSED TO APPLY THE DICLOFENAC GEL AT NIGHT.ALL NEEDS ATTENDED.
[2021-05-31 06:01] LABS: HEMATOCRIT 46.5 % (42.0-52.0); HEMOGLOBIN 15.5 gm/dL (14.0-18.0); MCH 29.2 pg (26.0-34.0); MCHC 33.3 g/dL (28.0-37.0); MCV 87.9 fL (80.0-100.0); RBC 5.29 mil/uL (4.50-6.00); RDW 14.7 % (10.5-14.5); WBC 8.2 thou/uL (4.0-11.0)
[2021-05-31 06:21] LABS: CALCIUM 8.7 mg/dL (8.5-10.1); CREATININE 1.1 mg/dL (0.7-1.3)
[2021-05-31 08:00] VITALS: BP 144/55
[2021-05-31 10:51] VITALS: BP 144/55
--- NOTE | 2021-05-31 11:10 | NUR ---
Assumed care of pt this AM. Pt is A&O x4 on RA. SA w/ 1AVB on the monitor. Pt c/o back pain & penis pain. Pt states that penis pain is from the catheter like it "got twisted inside". Light yellow urine out. Plan to discharge today. Will teach & patient how to do wound care at home. Will continue to assess for pt needs.
[2021-05-31 11:58] VITALS: BP 142/72
[2021-05-31] MEDS ORDERED: MINOCYCLINE 5050 M1 PO (12:53)
[2021-05-31] MEDS ORDERED: AMMONIUM LACTA226 GM TOP (12:56)
[2021-05-31] MEDS ORDERED: GENTAMICIN SULF15 GM TOP (12:56)
[2021-05-31] MEDS ORDERED: PERCOCET 10-321 EAC1 PO (12:57)
[2021-05-31] MEDS ORDERED: LASIX 40 MG TAB40 MG PO (13:01)
[2021-05-31 13:29] VITALS: BP 144/55
[2021-05-31 14:09] VITALS: BP 144/55
--- NOTE | 2021-05-31 14:16 | NUR ---
Pt dcing home today via family car with his . Pt instructed to f/u with [facility] for an new pcp appt as well as to utlize their walkin clinic. Scripts vouched per the [facility] for $89. Pain med script given to the pt to fill downstairs or at an outside pharmacy of his choice. instructed per unit rn on le compression dressings and provided some supplies. Pt was cleared by therapy and up ad fuentes with a cane.
== END 2021-05-31 14:19 | disposition home or self-care (01) | DRG 300 ==
LOC: ER 10:36 → EROBS 13:51 → 4W 17:21 → 2N 05-29 16:52
PROVIDERS: Nurse Practitioner; Physician Assistant; ADMIT Hospitalist; ATTEND Hospitalist
PROC: B4181ZZ Fluoroscopy of Bilateral Renal Arteries using Low Osmolar Contrast (ICD-10-PCS; principal; 2021-05-29)
PROC: B41D1ZZ Fluoroscopy of Aorta and Bilateral Lower Extremity Arteries using Low Osmolar Contrast (ICD-10-PCS; principal; 2021-05-29)
DX: E11.51 Type 2 diabetes mellitus with diabetic peripheral angiopathy without gangrene (principal); L03.116 Cellulitis of left lower limb; L03.115 Cellulitis of right lower limb; Z68.43 Body mass index [BMI] 50.0-59.9, adult; I10 Essential (primary) hypertension; J44.9 Chronic obstructive pulmonary disease, unspecified; G89.29 Other chronic pain; G47.33 Obstructive sleep apnea (adult) (pediatric); E11.65 Type 2 diabetes mellitus with hyperglycemia; F12.90 Cannabis use, unspecified, uncomplicated; E11.40 Type 2 diabetes mellitus with diabetic neuropathy, unspecified; E66.9 Obesity, unspecified; E11.622 Type 2 diabetes mellitus with other skin ulcer; I87.8 Other specified disorders of veins; I89.0 Lymphedema, not elsewhere classified; I71.4 Abdominal aortic aneurysm, without rupture; Z86.73 Personal history of transient ischemic attack (TIA), and cerebral infarction without residual deficits; I25.2 Old myocardial infarction; Z88.8 Allergy status to other drugs, medicaments and biological substances; Z88.6 Allergy status to analgesic agent; Z91.013 Allergy to seafood; Z79.891 Long term (current) use of opiate analgesic; Z71.6 Tobacco abuse counseling
CPT/HCPCS: 10045; 10081

== ENCOUNTER 2021-07-05 11:53 | Inpatient (IN) | payer OTHER ==
[~2021-07-05] VITALS: Ht 193 cm; Wt 189.9 kg
[~2021-07-05 11:53] MED LIST changes: +AMMONIUM LACTA226 GM TOP; +GENTAMICIN SULF15 GM TOP; +MINOCYCLINE 5050 M1 PO; +PERCOCET 10-321 EAC1 PO
[2021-07-05 11:56] VITALS: BP 166/77
[2021-07-05 12:47] LABS: ABSOLUTE NEUTROPHILS 6.9 thou/uL (1.4-8.2); BASOPHILS 0.8 % (0.0-2.0); EOSINOPHILS 1.5 % (0.0-3.0); HEMATOCRIT 51.7 % (42.0-52.0); LYMPHOCYTES 20.7 % (24.0-44.0); MCH 29.1 pg (26.0-34.0); MCHC 32.9 g/dL (28.0-37.0); MCV 88.5 fL (80.0-100.0); MONOCYTES 5.7 % (1.0-8.0); PLATELET COUNT 168 thou/uL (150-400); POLYS 71.3 % (36.0-66.0); RBC 5.84 mil/uL (4.50-6.00); RDW 15.7 % (10.5-14.5); WBC 9.6 thou/uL (4.0-11.0)
[2021-07-05 12:54] LABS: CALCIUM 8.5 mg/dL (8.5-10.1); CREATININE 0.9 mg/dL (0.7-1.3); POTASSIUM 4.1 mmol/L (3.5-5.1)
[2021-07-05 13:04] LABS: ALBUMIN 3.2 g/dL (3.4-5.0); TOTAL BILIRUBIN 0.7 mg/dL (0.2-1.0); TOTAL PROTEIN 7.1 g/dL (6.4-8.2)
--- NOTE | 2021-07-05 15:36 | EKG ---
[place] [address] [facility] [place] [address] ELECTROCARDIOGRAM REPORT Name: HOLLIE CONTRERAS Room #: 170-4 ADM IN M.R.#: [id number] Admission: 07/05/21 Attend Phys: Blaine Kim MD Discharge: Date of : 58 Report #: [id number] [facility] ED Test Date: 2021-07-05 Test Time: 12:22:59 Pat Name: HOLLIE CONTRERAS Department: Room: 170 Gender: M Night Auditor: : 1960 Requested By: Magda Simmons Order Number: [id number] MD: David Coyle Measurements Intervals [place] Rate: 59 P: 24 CA: 194 QRS: -31 QRSD: 111 T: 48 QT: 435 QTc: 431 Interpretive Statements Sinus rhythm Left axis deviation Low voltage, precordial leads Abnormal R-wave progression, early transition Compared to ECG 02/21/2021 16:21:03 No significant change was found Electronically Signed On 07-05-2021 15:36:33 CDT by David Coyle [email or web address] <ELECTRONICALLY SIGNED> By: Davdi Coyle MD, [facility] 07/05/21 1536 1222 122 David Coyle MD, [facility] /EPI
[2021-07-05 19:39] VITALS: BP 110/74
[2021-07-05 19:45] VITALS: BP 155/92
[2021-07-05 23:15] VITALS: BP 141/63
--- NOTE | 2021-07-05 23:20 | NUR ---
PT ADMITTED TO VIA ER, ARRIVED TO ROOM 357 AT APPROXIMATELY 1945. ADMISSION ASSESSMENTS COMPLETED, PT ORIENTED TO ROOM, CALL LIGHT, BED CONTROLS. FALL CONTRACT SIGNED AND FILED IN CHART. PT WITH SEVERE CHRONIC BACK/LEFT KNEE PAIN, STATES "IT IS ALWAYS A 9 OR 10. PAIN MEDICINE TAKES THE EDGE OFF BUT NOTHING REALLY HELPS." PT WITH OLIVARES CATHETER TO DD, CLEAR YELLOW URINE OBSERVED. PT CAN STAND AND TRANSFER WITH SBA/SUPERVISION. STEADY GAIT NOTED. WILL CONTINUE TO OBSERVE
[2021-07-06 04:02] VITALS: BP 113/56
[2021-07-06 04:06] LABS: GLYCOHEMOGLOBIN (HGB A1C) 7.8 % (4.8-5.6)
[2021-07-06 06:06] LABS: HEMATOCRIT 45.2 % (42.0-52.0); HEMOGLOBIN 15.2 gm/dL (14.0-18.0); MCH 29.7 pg (26.0-34.0); MCHC 33.6 g/dL (28.0-37.0); MCV 88.4 fL (80.0-100.0); RBC 5.12 mil/uL (4.50-6.00); RDW 15.6 % (10.5-14.5); WBC 8.5 thou/uL (4.0-11.0)
[2021-07-06 06:51] LABS: CALCIUM 8.3 mg/dL (8.5-10.1); CREATININE 0.9 mg/dL (0.7-1.3)
[2021-07-06 07:12] VITALS: BP 134/53
--- NOTE | 2021-07-06 10:02 | NUR ---
Nutrition: consult for morbid obesity. Wt up a few pounds from May admit. Pt reports good appetite. Denied nutrition concerns. Albumin 3.2, BG 168-281. Lasix and other meds reviewed. Pt declined education for wt loss. Would like cheeseburger and fries for lunch. Pt refused CHO controlled diet during last admit. Assess at low nutrition risk.
[2021-07-06 11:18] VITALS: BP 147/55
--- NOTE | 2021-07-06 13:38 | 2DMMODE ---
[facility] [place] [address] 2 D/M-MODE ECHOCARDIOGRAM Name: HOLLIE CONTRERAS Room #: 357-P ADM IN M.R.#: [id number] Admission: 07/05/21 Attend Phys: Blaine Kim MD Discharge: Date of : 58 Report #: [id number] THIS REPORT FOR: cc: ELEUTERIO - No family physician/PCP FAM - No family physician/PCP Akil Root MD [facility] ~ APPROVED REPORT Study performed: 07/06/2021 12:44:18 EXAM: Comprehensive 2D, Doppler, and color-flow Echocardiogram Patient Location: In-Patient Room #: 357 Status: routine BSA: 3.03 HR: 85 bpm BP: 134/53 mmHg Rhythm: NSR Other Information Technically limited study due to super morbid obesity. Exam done with patient in recliner. Indications SOA, CHF. Hx: COPD, CVA, PVD, HTN, HLP, DM. 2D Dimensions IVSd: 11.92 (7-11mm) LVOT Diam: 22.12 (18-24mm) LVDd: 39.73 mm PWd: 12.31 (7-11mm) Ascending Ao: 33.00 (22-36mm) LVDs: 27.47 (25-40mm) Aortic Root: 29.87 mm Aortic Valve AoV Peak Stephen.: 0.98 m/s AO Peak Gr.: 3.86 mmHg Mitral Valve E/A Ratio: 0.8 MV Decel. Time: 162.32 ms MV E Max Stephen.: 0.67 m/s MV A Stephen.: 0.80 m/s MV PHT: 47.07 ms [facility] [address] [place] [address] 2 D/M-MODE ECHOCARDIOGRAM Name: HOLLIE CONTRERAS Room #: 357-P ADM IN M.R.#: [id number] Admission: 07/05/21 Attend Phys: Blaine Kim MD Discharge: Date of : 58 Report #: [id number] Left Ventricle The left ventricle is normal size. There is normal LV segmental wall motion. Mild concentric left ventricular hypertrophy. Left ventricular systolic function is normal. LVEF is 60-65%. Mild diastolic dysfunction is present (impaired relaxation pattern). Right Ventricle Right ventricle is not well visualized. Atria The atria are not well visualized but appear grossly normal. Aortic Valve The aortic valve is normal in structure. No aortic regurgitation is present. There is no aortic valvular stenosis. Mitral Valve The mitral valve is normal in structure. There is no mitral valve regurgitation noted. No evidence of mitral valve stenosis. Tricuspid Valve The tricuspid valve is normal in structure. There is no tricuspid valve regurgitation noted. Unable to assess PA pressure. Pulmonic Valve The pulmonary valve is normal in structure. Trace pulmonic regurgitation. Great Vessels The aortic root is normal in size. The ascending aorta is normal in size. IVC is not visualized. Pericardium There is no pericardial effusion noted. <Conclusion> Normal left ventricle size with mild concentric hypertrophy Ejection fraction 6065 % Normal right ventricle size/function Normal atrial size Normal aortic/mitral valve structure and function No tricuspid valve insufficiency [facility] [place] [address] 2 D/M-MODE ECHOCARDIOGRAM Name: HOLLIE CONTRERAS Saniya Room #: 357-P [facility] IN .R.#: [id number] Admission: 07/05/21 Attend Phys: Blaine Kim MD Discharge: Date of : 58 Report #: [id number] No pericardial effusion Normal aortic root size <ELECTRONICALLY SIGNED> By: Akil Root MD, FACC 07/06/218 37 37 Akil Root MD, FACC /INF
[2021-07-06 15:29] VITALS: BP 140/55
--- NOTE | 2021-07-06 16:24 | NUR ---
INITIAL ASSESSMENT: SW reviewed chart and spoke with nursing and attending physician. Pt was admitted from home due to BLE edema. Pt with hx HTN, DM and CHF. Pt does not have health insurance. [employer] has assisted pt with applying for Medicaid. Application is pending. Case Mgmt dept has vouched for pt's meds in the past. MELANIE met with pt at bedside. Introduced role of SW. Pt is alert/orientated x 4. Pt reports he lives at home with his family. Prior to admission, he was independent with ADLs. No use of DME. Pt had questions regarding his Medicaid application. SW explained that [employer] will follow up. Pt verbalized understanding. Unsure of discharge timeframe. SW left Health Resource Guide for nursing to provide to pt when discharged. Pt needs primary care and follow up care. MELANIE is following to assist as needed with discharge planning.
--- NOTE | 2021-07-06 18:41 | NUR ---
RN ASSUMED PT'S CARE AT 0700AM, PT IS A&OX4, PT IS ON O2 2L/MIN/NC, PT'S VS ARE STABLE, PT HAS BLE LYMPHEDEMA , OT HAS WRAP PT'S BLE, PT IS CONTINUING PAIN AND BS MANAGEMENT.
[2021-07-06 19:20] VITALS: BP 133/49
--- NOTE | 2021-07-07 02:38 | NUR ---
complains that his bed is uncomfortable and that he needs up in the chair. he is awake and wants the cpap off at 0200. gave him a pain pill and up in the chair at this time. having some coffee and watching tv.
[2021-07-07 03:49] VITALS: BP 118/49
[2021-07-07 07:14] VITALS: BP 118/79
[2021-07-07 10:48] VITALS: BP 132/39
[2021-07-07 15:07] VITALS: BP 133/56
--- NOTE | 2021-07-07 19:41 | NUR ---
RN ASSUMED PT'S CARE AT 0700-1900PM, PT IS A&OX4, PT IS ON O2 2L/MIN/NC, PT'S VS ARE STABLE, PT IS CONTINUING BS AND PAIN MANAGEMENT , PT DENIES SOB AT DAY SHIFT, PT'S BLE LYMPHEDEMA WRAP DRESSING IS CDI.
[2021-07-07 20:12] VITALS: BP 138/57
[2021-07-08 06:20] LABS: CALCIUM 8.4 mg/dL (8.5-10.1); CREATININE 0.9 mg/dL (0.7-1.3); POTASSIUM 3.9 mmol/L (3.5-5.1)
--- NOTE | 2021-07-08 06:25 | NUR ---
PT ALERT AND ORIENTED X 4. CURRENTLY ON 2L O2 NC. PT C/O OF BACK AND LEG PAIN. ADMINISTERED PAIN MEDICINE PRN. OLIVARES ON PLACE. PT HAS BLE EDEMA, OT APPLIED DRESSING YESTERDAY. WILL CONTINUE TO MONITOR.
[2021-07-08 07:46] VITALS: BP 112/69
[2021-07-08 16:09] VITALS: BP 125/52
[2021-07-08 19:24] VITALS: BP 119/52
--- NOTE | 2021-07-08 19:30 | NUR ---
RN ASSUMED PT'S CARE AT 0700-1900PM, PT IS A&OX4, PT IS ON O2 2L/MIN/NC, PT 'S VS ARE STABLE AT DAY SHIFT.
[2021-07-09 03:54] VITALS: BP 114/54
--- NOTE | 2021-07-09 05:18 | NUR ---
PT ALERT & ORIENTED X 4. CURRENTLY ON 2L O2 NC. PT HAS COMPLAINTS OF PAIN ON BACK AND LEGS, NURSE ADMINISTERED PAIN MEDS PRN. VSS OVERNIGHT. MARSHALL MOLINA DD. WILL CONTINUE TO MONITOR.
[2021-07-09 07:10] VITALS: BP 153/85
--- NOTE | 2021-07-09 15:06 | NUR ---
MELANIE reviewed chart and spoke with nursing and attending physician. Pt remains on 2-4L of O2. SW met with pt at bedside per his request. Long discussion with pt regarding Medicaid application process. Pt states he has been working on his [place] Medicaid application for months and is frustrated that his Medicaid is not active yet. Pt states he had [place] Medicaid for several years. Pt states that he does not have the financial means to go to [facility] or to a [facility]. MELANIE explained that [employer] is working with pt on his Medicaid application. MELANIE sent another email today requesting [employer] to follow up with pt. Jon to check status of Medicaid application. Pt will need medications vouched at time of discharge. Pt states he is out of all of his medications. Discharge home is anticipated in 1-2 days. MELANIE is following to assist as needed with discharge planning.
[2021-07-09 17:32] VITALS: BP 141/84
[2021-07-09 19:04] VITALS: BP 138/58
--- NOTE | 2021-07-09 20:00 | NUR ---
RN ASSUMED PT'S CARE AT 0700-1900PM, PT IS A&OX4, PT IS ON O2 2L/MIN/NC, PT NEEDS MORE O2 4-5 L WITH ACTIVITIES, PT'S LOW BACK PAIN AND BS HAVE CONTROL BY MEDICATIONS,
[2021-07-10 04:33] VITALS: BP 125/51
--- NOTE | 2021-07-10 05:45 | NUR ---
PT MAKING PROGRESS TOWARDS GOALS. PT WORE BIPAP OVERNIGHT UNTIL APPROXIMATELY 0330. O2 AT 4L PER NC WAS STARTED AT THAT TIME. PT WAS UP TO CHAIR WITH ONLY STANDBY ASSIST. NO SOA NOTED. HAS CONTINUOUS PULSE OXIMETER IN PLACE WITH NO ALARMS NOTED OVERNIGHT.
[2021-07-10 07:41] VITALS: BP 149/70
[2021-07-10 11:15] VITALS: BP 128/60
--- NOTE | 2021-07-10 14:23 | NUR ---
MELANIE received call from pt's requesting and update. MELANIE reviewed chart and spoke with nursing and attending physician. Wound care consulted. Pt remains on 4L of O2. MELANIE spoke with pt's , Anan, via phone. Update provided. Clarified with pt's that pt is applying for [place] MEDICAID. They recently moved from [place], [place] to [place]. Per pt's , she received something in the mail recently stating that pt does not qualify for [place] Medicaid. Pt's states that pt and their son are both on disability and together have about $1400/month income. Pt's does not work. MELANIE has discussed case with DAVID tang and Director of Case Mgmt. Awaiting input/approval for [facility] outpatient lymphedema therapy visits. MELANIE discussed this possiblity with pt's . Pt's states that they are relying on their dtr's car, but they should be able to get [facility] [place] these appts. They will need to work around their dtr's work schedule. MELANIE contacted [employer] to follow up and discuss [place] Medicaid application. Pt does not have O2 at home. Pt will need a rest/exercise oximetry prior to discharge to determine if home O2 is needed. MELANIE is following to assist as needede with discharge planning.
[2021-07-10 15:17] LABS: HEMATOCRIT 45.9 % (42.0-52.0); HEMOGLOBIN 15.1 gm/dL (14.0-18.0); MCHC 32.9 g/dL (28.0-37.0); MCV 88.4 fL (80.0-100.0); RBC 5.19 mil/uL (4.50-6.00); RDW 15.3 % (10.5-14.5); WBC 9.8 thou/uL (4.0-11.0)
[2021-07-10 15:30] LABS: CALCIUM 8.9 mg/dL (8.5-10.1); CREATININE 1.1 mg/dL (0.7-1.3); MAGNESIUM 2.3 mg/dL (1.8-2.4); POTASSIUM 4.4 mmol/L (3.5-5.1)
[2021-07-10 15:34] VITALS: BP 150/70
[2021-07-10 16:31] LABS: BE(vivo) 6.1 mmol/L (-2 to +3); PCO2 55.9 mmHg (35.0-45.0); PO2 74.5 mmHg (80.0-100.0); pH 7.389 (7.360-7.450); sO2 94.6 % (92.0-98.0)
[2021-07-10 19:26] VITALS: BP 127/61
--- NOTE | 2021-07-10 19:37 | NUR ---
RN ASSUMED PT'S CARE AT 0700-1900PM, PT IS A&OX4, PT IS ON O2 2L-4 L/MIN/NC, PT NEEDS MORE O2 WITH ACTIVITIES,OT STAFF HAS WRAP PT'S BLE ( LYMPHEDEMA ), PT 'S BACK AND BLE PAIN HAVE CONTROLED BY PO MEDICATIONS, PT'S VS ARE STABE AT DAY SHIFT.
--- NOTE | 2021-07-10 21:51 | NUR ---
TALKATIVE, PALE SKIN TONE. CONTINUOUS PULSE OX, NC AND CPAP AT HS. LUNGS DIMINISHED. BLE LYMPHEDEMA WRAPS. OLIVARES TO DD. SBA WITH TRANSFERS, PT HAS CHRONIC BACK PAIN. PT PLANS ON DC IN AM. PROVIDED HS SNACK.
[2021-07-11 03:27] VITALS: BP 130/71
[2021-07-11 07:12] VITALS: BP 139/60
[2021-07-11] MEDS ORDERED: ROXICODONE30 MG PO (13:46)
[2021-07-11] MEDS ORDERED: CLOPIDOGREL75 MG PO (13:46)
[2021-07-11] MEDS ORDERED: ATENOLOL 25 MG25 M1 PO (13:46)
[2021-07-11] MEDS ORDERED: PROAIR HFA8.5 GM INH (13:46)
[2021-07-11] MEDS ORDERED: GABAPENTIN800 M1 PO (13:46)
[2021-07-11] MEDS ORDERED: LANTUS SUBQ (13:46)
[2021-07-11] MEDS ORDERED: GENTAMICIN SULF15 GM TOP (13:46)
[2021-07-11] MEDS ORDERED: PRINIVIL20 MG PO (13:46)
[2021-07-11] MEDS ORDERED: ATORVASTATIN CA20 MG PO (13:46)
[2021-07-11] MEDS ORDERED: IMDUR 30 MG TAB30 M1 PO (13:46)
[2021-07-11] MEDS ORDERED: LASIX 40 MG TAB40 MG PO (13:46)
[2021-07-11] MEDS ORDERED: NOVOLOG FL100 UNIT/M SUBQ (13:46)
[2021-07-11] MEDS ORDERED: AMMONIUM LACTA226 GM TOP (13:46)
[2021-07-11] MEDS ORDERED: BACLOFEN 10MG T10 MG PO (13:50)
[2021-07-11 14:05] VITALS: BP 139/60
--- NOTE | 2021-07-11 15:02 | NUR ---
DISCHARGE NOTE: MELANIE reviewed chart and spoke with nursing and attending physician. Pt is medically stable for discharge home today. Pt on room air. MELANIE spoke with Yanira with lymphedema therapy, who states that pt would benefit from outpatient lymphedema therapy sessions 3x/week for 4 weeks. Pt may qualify for a venkatesh program that will provide leg wraps and supplies. MELANIE confirmed that [employer] is working with pt on a [place]-Medicaid application. MELANIE met with pt at bedside. Pt was on the phone with attending physician regarding his discharge plan and recommended follow up care. Pt became upset with attending physician and refused to finish conversation. Pt handed SW the phone to speak with the attending physician. Pt's meds to be vouched by case mgmt dept. Pt is aware that pain medications will not be paid for. SW provided pt with information regarding follow up care at [facility]. Pt states he will establish primary care. Pt is hoping to have an update regarding his Medicaid application soon. [facility] [employer] did meet with pt earlier today. MELANIE faxed face sheet to [facility]. Spoke with Shea to notify that Case Mgmt will vouch for all meds except pain meds. Awaiting total cost at this time. MELANIE placed contact info for [employer] and [facility] provider groups in pt's discharge summary. SW also placed info regarding arranging outpatient lymphedema treatments. Pt states he has the info and will call to arrange the visits. Pt's now at the bedside. MELANIE met with both at bedside to review discharge and follow up plan. Pt stating he needs to be discharged [place]. MELANIE explained that meds are being filled now. Pt's has money to pay for pt's pain meds. MELANIE updated pt's nurse. No additional MELANIE needs identified at this time. MELANIE is available to assist should needs arise.
--- NOTE | 2021-07-11 15:07 | NUR ---
RN ASSUMED PT'S CARE AT 0700-1500PM, PT IS A&OX4, PT'S SOB AND BLE EDEMA HAVE IMPROVED , PT IS OFF O2 TODAY. PT'S VS AND O2SAT ARE STABLE, RN RECEIVED ORDER TO DC PT TO HOME. 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
--- NOTE | 2021-07-11 15:35 | NUR ---
PT'S OLIVARES CANTHETER HAS REMOVED BEFORE PT DC TO HOME.
--- NOTE | 2021-07-12 10:44 | NUR ---
Pt's venkatesh outpatient lymphedema therapy has been approved. MELANIE faxed pt's info and script to Outpatient Therapy. Spoke with Yanira to notify of info being faxed. Therapy to schedule appts with pt. Should pt need cab vouchers, Yanira will contact MELANIE. MELANIE is available to assist as needed.
--- NOTE | 2021-07-13 10:19 | HC ---
[facility] [place] [address] CONSULTATION Name: HOLLIE CONTRERAS Room #: 357-P [facility] IN M.R.#: [id number] Admission: 07/05/21 Attend Phys: Blaine Kim MD Discharge: 07/11/21 Date of : 58 Report #: [id number] THIS REPORT FOR: cc: FAM - No family physician/PCP FAM - No family physician/PCP Lyle Sawant MD ~ DATE OF SERVICE: 07/09/2021 CHIEF COMPLAINT: Lymphedema, bilateral lower extremities. HISTORY OF PRESENT ILLNESS: This is a 60-year-old male patient who was admitted to the hospital on 07/05 with an exacerbation of congestive heart failure and volume overload. He was noted to have bilateral lower extremity lymphedema and lymphedema therapist had been asked to see him. There was some concern over prior vascular insufficiency and I have been asked to see him with regard to an opinion as to whether compression would be permissible. The patient states he is having some discomfort in his legs, but not significant pain. PAST MEDICAL HISTORY: Positive for history of congestive heart failure, bilateral lower extremity lymphedema, morbid obesity, type 2 diabetes mellitus, prior myocardial infarction, abdominal aortic aneurysm. SOCIAL HISTORY: The patient is a heavy cigarette smoker, a pack per day. No significant alcohol use. FAMILY HISTORY: Noncontributory. MEDICATIONS: Include minocycline, gentamicin, ammonium lactate, oxycodone, furosemide, clopidogrel, atorvastatin, Isordil, atenolol, lisinopril, gabapentin, insulin. ALLERGIES: MAYONNAISE, SEAFOOD, MORPHINE, VARENICLINE. REVIEW OF SYSTEMS: CONSTITUTIONAL: The patient denies fever, chills, weight loss. NEUROLOGICAL: The patient denies focal weakness, numbness or tingling. EYES: The patient denies visual changes, redness or drainage. ENT: The patient denies earache, nasal drainage or sore throat. CARDIOVASCULAR: The patient denies chest pain, palpitations, diaphoresis. PULMONARY: The patient denies cough or shortness of breath. GASTROINTESTINAL: The patient denies nausea, vomiting, diarrhea or abdominal pain. ORTHOPEDIC: The patient has swelling of bilateral lower extremities. No open ulceration at the present. Others systems in a 14-point review of systems are negative. [address] [address] CONSULTATION Name: HOLLIE CONTRERAS Room #: 357-P [facility] IN M.R.#: [id number] Admission: 07/05/21 Attend Phys: Blaine Kim MD Discharge: 07/11/21 Date of : 58 Report #: [id number] PHYSICAL EXAMINATION: VITAL SIGNS: At this time include temperature 36.7, pulse 82, respiration of 22, blood pressure 141/84. GENERAL: This is a chronically ill-appearing male patient who appears to be in mild discomfort. HEENT: Head, normocephalic. Nose and throat are clear. LUNGS: Diminished. HEART: Irregular. ABDOMEN: Soft, obese, nontender. EXTREMITIES: Lower extremities demonstrate 2 to 3+ edema; chronic venous stasis dermatitis, bilateral lower extremities, but no open ulceration and no overt cellulitis at this time. LABORATORY STUDIES: Include white blood cell count 8.5 with a hemoglobin of 15.2. Sodium 135, potassium 3.9, chloride 99, CO2 of 27, BUN 14, creatinine 0.9, glucose 232. Prior lower extremity Doppler as recently as 05/22/2021 demonstrates the left femoral popliteal bypass graft with transition to monophasic waveforms in the left common femoral artery, elevated popliteal artery suggestive of stenosis in the femoral popliteal segment of the graft. He underwent angiography on 05/29/2021, which demonstrated no flow-limiting arterial stenosis in either lower extremity. CLINICAL IMPRESSION: 1. Bilateral lower extremity lymphedema. 2. Exacerbation of congestive heart failure. 3. Type 2 diabetes mellitus. 4. Morbid obesity. RECOMMENDATIONS: At this point in time, I think it would be appropriate and safe to undergo lymphedema therapy with bilateral manual lymphatic drainage and long stretch bandage to be changed by occupational therapy multiple days per week. Continue with management of his type 2 diabetes mellitus. Elevation of lower extremities for edema control. I appreciate being asked to see him in consultation. <ELECTRONICALLY SIGNED> By: Lyle Sawant MD 07/13/21 1019 1535 26 Lyle Sawant MD /nt
== END 2021-07-11 15:15 | disposition home or self-care (01) | DRG 291 ==
LOC: ER 11:53 → EROBS 13:27 → 3W 19:29
PROVIDERS: Emergency Medicine; Nurse Practitioner; Physician Assistant; ADMIT Internal Medicine; ATTEND Internal Medicine
PROC: 5A09357 Assistance with Respiratory Ventilation, Less than 24 Consecutive Hours, Continuous Positive Airway Pressure (ICD-10-PCS; principal; 2021-07-06)
PROC: 5A09357 Assistance with Respiratory Ventilation, Less than 24 Consecutive Hours, Continuous Positive Airway Pressure (ICD-10-PCS; 2021-07-09)
PROC: 5A09357 Assistance with Respiratory Ventilation, Less than 24 Consecutive Hours, Continuous Positive Airway Pressure (ICD-10-PCS; 2021-07-10)
DX: I11.0 Hypertensive heart disease with heart failure (principal); J96.01 Acute respiratory failure with hypoxia; I50.33 Acute on chronic diastolic (congestive) heart failure; E44.1 Mild protein-calorie malnutrition; Z68.43 Body mass index [BMI] 50.0-59.9, adult; J44.9 Chronic obstructive pulmonary disease, unspecified; G89.29 Other chronic pain; M54.9 Dorsalgia, unspecified; G47.33 Obstructive sleep apnea (adult) (pediatric); F12.90 Cannabis use, unspecified, uncomplicated; E87.79 Other fluid overload; E66.01 Morbid (severe) obesity due to excess calories; I89.0 Lymphedema, not elsewhere classified; E11.51 Type 2 diabetes mellitus with diabetic peripheral angiopathy without gangrene; I87.2 Venous insufficiency (chronic) (peripheral); I71.4 Abdominal aortic aneurysm, without rupture; Z20.822 Contact with and (suspected) exposure to COVID-19; I25.2 Old myocardial infarction; Z86.73 Personal history of transient ischemic attack (TIA), and cerebral infarction without residual deficits; Z88.8 Allergy status to other drugs, medicaments and biological substances; Z91.013 Allergy to seafood; Z71.6 Tobacco abuse counseling; Z91.19 Patient's noncompliance with other medical treatment and regimen
CPT/HCPCS: 10879

== ENCOUNTER 2021-08-21 13:34 | Emergency (ER) | payer OTHER ==
[~2021-08-21] VITALS: Ht 193 cm; Wt 181.4 kg
[~2021-08-21 13:34] MED LIST changes: +LANTUS SUBQ; +PROAIR HFA8.5 GM INH
[2021-08-21 13:35] VITALS: BP 183/87
[2021-08-21] MEDS ORDERED: LANTUS SUBQ (14:44)
[2021-08-21] MEDS ORDERED: ATENOLOL 25 MG25 M1 PO (14:44)
[2021-08-21] MEDS ORDERED: PLAVIX 75 MG TA75 MG PO (14:44)
[2021-08-21] MEDS ORDERED: ZESTRIL20 MG PO (14:44)
[2021-08-21] MEDS ORDERED: ISOSORBIDE DINI30 MG PO (14:44)
[2021-08-21] MEDS ORDERED: GABAPENTIN800 M1 PO (14:44)
[2021-08-21] MEDS ORDERED: BACLOFEN 10MG T10 MG PO (14:44)
[2021-08-21] MEDS ORDERED: LIPITOR 20 MG T20 M1 PO (14:44)
[2021-08-21] MEDS ORDERED: NOVOLOG100 UNIT/2 SUBQ (14:44)
[2021-08-21] MEDS ORDERED: HYDROCHLOROTHIA25 M1 PO (14:44)
== END 2021-08-21 14:48 | disposition home or self-care (01) ==
LOC: ER 13:34
DX: Z76.0 Encounter for issue of repeat prescription (principal); I10 Essential (primary) hypertension; J44.9 Chronic obstructive pulmonary disease, unspecified; E11.9 Type 2 diabetes mellitus without complications; G43.909 Migraine, unspecified, not intractable, without status migrainosus; F17.210 Nicotine dependence, cigarettes, uncomplicated; F12.90 Cannabis use, unspecified, uncomplicated; Z86.73 Personal history of transient ischemic attack (TIA), and cerebral infarction without residual deficits; Z79.4 Long term (current) use of insulin; Z79.51 Long term (current) use of inhaled steroids; Z79.891 Long term (current) use of opiate analgesic; Z79.1 Long term (current) use of non-steroidal anti-inflammatories (NSAID); Z79.899 Other long term (current) drug therapy; Z88.8 Allergy status to other drugs, medicaments and biological substances; Z88.6 Allergy status to analgesic agent; Z88.5 Allergy status to narcotic agent; Z91.013 Allergy to seafood